=== PATIENT | male | born 1935 | race Caucasian/White ===

== ENCOUNTER 2018-06-23 09:39 | Outpatient (CLI) | payer MEDICARE, BC, OTHER ==
--- NOTE | 2018-06-23 11:27 | ULT ---
COMPLETE ABDOMEN ULTRASOUND: INDICATION: Abdominal pain. COMPARISON: CT of the abdomen and pelvis dated 05/06/2015. FINDINGS: Overlying bowel gas limits evaluation of portions of the left hepatic lobe, proximal aorta. The mid to distal aorta appears within normal limits. The visualized IVC is unremarkable. There are small 4 mm nonmobile focus within the gallbladder. No gallbladder wall thickening or pericholecystic fluid is evident. The common bile duct measures 3.2 mm. Appropriate flow is seen in the main portal vein. No free fluid is evident within the abdomen. The right kidney measures 14.7 x 5.5 x 5.4 cm. The lef t kidney measures 10.0 x 5.1 x 4.8 cm. No focal solid renal lesion or hydronephrosis is evident. Wi thin the inferior pole of the right kidney, there is a large simple cyst measuring 5.3 x 5.3 x 5.6 cm . The spleen is not well demonstrated due to overlying bowel gas. IMPRESSION: 1. Technically limited examination due to overlying bowel gas. 2. Small gallbladder polyp versus tiny adherent gallstone. 3. Right renal cyst. 4. The patient's known left hepatic lobe cyst on a comparison CT from 05/06/2015 from [facility] was not well demonstrated due to the overlying bowel gas. POS: OFF
== END 2018-06-23 09:40 | disposition home or self-care (01) ==
LOC: BICULT 09:39
PROVIDERS: ATTEND Internal Medicine Gastroenterology
DX: K59.09 Other constipation (principal); R10.9 Unspecified abdominal pain; N28.1 Cyst of kidney, acquired; K76.89 Other specified diseases of liver
CPT/HCPCS: 76700

== ENCOUNTER 2019-07-18 08:55 | Outpatient (CLI) | payer MEDICARE, BC ==
--- NOTE | 2019-07-18 10:23 | ULT ---
ULTRASOUND ABDOMEN: HISTORY: Gallbladder polyp. COMPARISON: 06/23/2018. FINDINGS: The left lobe of the liver, pancreas, and the proximal abdominal aorta are not satisfactorily visuali zed due to overlying bowel gas. The spleen is also not seen. The right lobe of the liver is unremar kable. There are 2 nonshadowing immobile echogenic foci arising from the gallbladder wall consistent with po lyps measuring 4 and 7 mm respectively. No shadowing gallstones, gallbladder wall thickening, or per icholecystic fluid is seen. The common duct measures 5 mm in diameter. No free fluid is noted. No hydronephrosis is seen on either side. There are cysts in the right kidney, one of which is a 6.1 cm simple cyst in the inferior pole and a 1.7 cm septated cyst in the superior pole of the right kidney . IMPRESSION: 1. Gallbladder polyps. There are 2 polyps seen on the current exam, while only 1 was noted on the p revious study. 2. Right renal cyst. POS: [id number]
== END 2019-07-18 08:56 | disposition home or self-care (01) ==
LOC: BICULT 08:55
PROVIDERS: ATTEND Internal Medicine Gastroenterology
DX: K82.4 Cholesterolosis of gallbladder (principal); N28.1 Cyst of kidney, acquired
CPT/HCPCS: 76705

== ENCOUNTER 2020-01-14 14:00 | Outpatient (CLI) | payer MEDICARE, BC ==
[~2020-01-14 14:00] MED LIST: Magnevist 469MG/ML 20 ML VIAL ONE
--- NOTE | 2020-01-14 16:18 | MRI ---
MR OF THE PELVIS WITH AND WITHOUT CONTRAST INDICATION: Elevated PSA COMPARISON: None TECHNIQUE: Multiplanar, multisequence MR images were obtained of the pelvis with and without IV contr ast. 20 cc of MultiHance was utilized for the examination. The examination was reviewed on a separate [employer] 3-D workstation for multiplanar metric evaluation. The lack of a bowel prep limits t he diffusion-weighted and ADC values due to rectal gas and rectal stool. FINDINGS: Prostate size: The prostate measured 5.3 x 4.1 x 5.4cm. 57.59 cc. Peripheral zone: There is a 1.9 x 0.9 cm lenticular T2 hypointense, hypointense ADC lesion abutting t he posterior medial and posterior lateral wall of the right prostatic apex and mid gland. This lesion demonstrates abnormal enhancement and is suspicious for clinically significant cancer. No gracia tional lesion is seen within the peripheral zone. Central zone: No suspicious signal abnormality or focal lesion. Neural vasculature: With the size of the lesion in the peripheral zone of the right mid and right pro static apex abutting the capsular wall, right-sided neurovascular invasion is suspected. Regional lymphadenopathy: None Dynamic contrast enhancement: Abnormal within the posterior medial and posterior lateral right prosta tic apex and mid gland Osseous structures: No suspicious osseous lesion is identified. Additional findings: None.. IMPRESSION: 1. PIRADS 5- Very High (clinically significant cancer is highly likely to be present.) 2. 1.9-0.9 cm lenticular, T2 hypointense, ADC hypointense lesion abutting the posterior medial and po sterior lateral wall of the right prostatic apex and mid gland suspicious for clinically significant cancer. With the size of the lesion abutting the capsule of the right prostate gland, rig ht-sided neurovascular invasion is suspected.
== END 2020-01-14 14:01 | disposition home or self-care (01) ==
LOC: TBSIIMAG 14:00
PROVIDERS: ATTEND Urology
DX: R97.20 Elevated prostate specific antigen [PSA] (principal); N42.89 Other specified disorders of prostate
CPT/HCPCS: 72197; A9579

== ENCOUNTER 2020-02-06 09:47 | Outpatient (CLI) | payer MEDICARE, BC ==
--- NOTE | 2020-02-06 13:43 | NM ---
Radionucleotide bone scan HISTORY: Malignant neoplasm of prostate gland. FINDINGS: Heterogeneous mildly increased uptake associated with the thoracolumbar spine, where S shap ed curvature is also present, has a appearance of degenerative changes. Degenerative type uptake also involves the shoulders, elbows, wrists and hands, knees, and feet. No suspicious areas of increased activity are apparent. Sacrum partially obscured by uptake of the bl adder. IMPRESSION : No evidence of osseous metastatic disease.
== END 2020-02-06 09:48 | disposition home or self-care (01) ==
LOC: NM 09:47
PROVIDERS: ATTEND Urology
DX: C61 Malignant neoplasm of prostate (principal)
CPT/HCPCS: 78306; A9503

== ENCOUNTER 2021-09-29 08:17 | Outpatient (CLI) | payer MEDICARE, BC | END 2021-09-29 08:18 | disposition home or self-care (01) | LOC: ULT 08:17 | PROVIDERS: ATTEND Internal Medicine Gastroenterology | DX: R11.0 Nausea (principal); K59.09 Other constipation; K82.4 Cholesterolosis of gallbladder; N28.1 Cyst of kidney, acquired; K76.89 Other specified diseases of liver | CPT/HCPCS: 76700; 78264; A9541 ==

== ENCOUNTER 2021-10-02 08:50 | Outpatient (CLI) | payer MEDICARE, BC, OTHER | END 2021-10-02 08:51 | disposition home or self-care (01) | LOC: NM 08:50 | PROVIDERS: ATTEND Urology | DX: C61 Malignant neoplasm of prostate (principal) | CPT/HCPCS: 78306; A9503 ==

== ENCOUNTER 2021-12-15 12:56 | Outpatient (CLI) | payer MEDICARE, BC | END 2021-12-15 12:57 | disposition home or self-care (01) | LOC: TBSIIMAG 12:56 | PROVIDERS: ATTEND Radiology Radiation Oncology | DX: C61 Malignant neoplasm of prostate (principal); R19.00 Intra-abdominal and pelvic swelling, mass and lump, unspecified site | CPT/HCPCS: 72197; 82565; A9579 ==

== ENCOUNTER 2022-01-07 02:49 | Observation (INO) | payer MEDICARE, BC, OTHER ==
[2022-01-07 05:22] VITALS: BMI 26.6
[2022-01-07 06:16] LABS: #Lymphocytes 0.6 thou/uL (1.20-3.40); #Monocytes 0.9 thou/uL (0.11-0.59); #Neutrophils 6.9 thou/uL (1.40-6.50); %Basophils 0.1 % (0.0-1.0); %Eosinophils 0.5 % (0.0-10.0); %Lymphocytes 7.3 % (21.0-51.0); %Monocytes 10.4 % (0.0-10.0); %Neutrophils 81.8 % (42.0-75.0); Hemoglobin 12.2 g/dL (14.0-18.0); Mean Corpuscular HGB CONC 33.7 g/dL (32.0-36.0); Mean Corpuscular Hemoglobin 32.7 pg (27.0-31.0); Mean Corpuscular Volume 96.9 fl (78.0-98.0); Mean Platelet Volume 7.5 fL (7.4-10.4); Platelet Count 192 10x3/uL (130-400); RBC Distribution Width 12.9 % (11.5-14.5); Red Blood Cell (RBC) Count 3.74 mill/uL (4.70-6.10); White Blood Cell (WBC) Count 8.4 10x3/uL (4.8-10.8)
[2022-01-07 06:26] LABS: Anion Gap 12 mmol/L (10-20); BUN (Urea Nitrogen) 7 mg/dL (8.4-25.7); Calc. Creatinine Clearance 77 mL/min (70-130); Carbon Dioxide 23 mmol/L (23-31); Chloride 99 mmol/L (98-107); Estimated GFR 85; Glucose 123 mg/dL (83-110); Potassium 3.8 mmol/L (3.5-5.1); Sodium 130 mmol/L (136-145)
[2022-01-07] MEDS ORDERED: FLU VACC QS2022-23(65YR UP)/PF 240 MCG/0.7 ML SYRINGE IM ONE (09:00)
[2022-01-07] MEDS ORDERED: Calcium Carbonate 500 MG ChewTAB PO PRN (09:17)
[2022-01-07] MEDS ORDERED: Acetaminophen 325 MG TAB PO PRN (09:17)
[2022-01-07] MEDS ORDERED: cefTRIAXone\\ROCEPHIN 1 GM in Sodium Chloride 0.9% 100 ML IVPB SCH (10:00)
[2022-01-07] MEDS ORDERED: Cefdinir 300 MG CAP PO SCH ×2 (10:15→21:00)
[2022-01-07] MEDS ORDERED: Apixaban 5 MG TAB PO SCH ×2 (10:30→21:00)
[2022-01-07] MEDS ORDERED: Magnesium Sulfate In Water 4 GM in Premix Bag 1 BAG IVPB SCH ×2 (10:30→11:00)
[2022-01-07] MEDS ORDERED: Dronedarone HCl 400 MG TAB PO SCH ×2 (10:30→17:00)
[2022-01-07] MEDS ORDERED: Aspirin 81 mg Enteric Coated Tablet PO SCH (10:30)
[2022-01-07] MEDS ORDERED: Dextrose 50% Abboject 50 ML SYRINGE SLOW IVP PRN (14:41)
[2022-01-07] MEDS ORDERED: Insulin Regular 300 UNITS/3 ML VIAL SC PRN (14:41)
[2022-01-07] MEDS ORDERED: Dextrose 5% in Water 1,000 ML IV PRN (14:41)
[2022-01-07 14:49] VITALS: BP 162/82; TEMP 98.3
[2022-01-08] MEDS ORDERED: Aspirin 81 mg Enteric Coated Tablet PO SCH (09:00)
== END 2022-01-07 15:00 | disposition home or self-care (01) ==
LOC: T4-A 05:05
PROVIDERS: ADMIT Internal Medicine; ATTEND Internal Medicine
DX: E86.0 Dehydration (principal); R19.7 Diarrhea, unspecified; R10.9 Unspecified abdominal pain; E87.1 Hypo-osmolality and hyponatremia; E83.42 Hypomagnesemia; C61 Malignant neoplasm of prostate; E11.9 Type 2 diabetes mellitus without complications; I10 Essential (primary) hypertension; I48.20 Chronic atrial fibrillation, unspecified; N39.0 Urinary tract infection, site not specified; E78.5 Hyperlipidemia, unspecified; I25.10 Atherosclerotic heart disease of native coronary artery without angina pectoris; Z79.01 Long term (current) use of anticoagulants; Z79.2 Long term (current) use of antibiotics; Z79.82 Long term (current) use of aspirin; Z79.84 Long term (current) use of oral hypoglycemic drugs; Z79.899 Other long term (current) drug therapy; Z88.2 Allergy status to sulfonamides; Z88.5 Allergy status to narcotic agent; Z88.8 Allergy status to other drugs, medicaments and biological substances; Z95.5 Presence of coronary angioplasty implant and graft; Z20.822 Contact with and (suspected) exposure to COVID-19
CPT/HCPCS: 80048; 85025; J3475; U0003; U0005; 36415; 96374; G0378

== ENCOUNTER 2022-03-17 11:26 | Outpatient (CLI) | payer MEDICARE, BC, OTHER ==
[~2022-03-17 11:26] MED LIST changes: +Iopamidol 370 76% 100 ML VIAL ONE; -Magnevist 469MG/ML 20 ML VIAL ONE
== END 2022-03-17 11:27 | disposition home or self-care (01) ==
LOC: CT 11:26
PROVIDERS: ATTEND Radiology Radiation Oncology
DX: R59.0 Localized enlarged lymph nodes (principal)
CPT/HCPCS: 70491; 82565; Q9967

== ENCOUNTER 2022-12-22 21:33 | Inpatient (IN) | payer MEDICARE, BC ==
[2022-12-22] MEDS ORDERED: Acetaminophen 650 MG Suppository PR PRN (22:19)
[2022-12-22] MEDS ORDERED: Acetaminophen 325 MG TAB PO PRN (22:19)
[2022-12-22] MEDS ORDERED: HumaLOG 300 UNITS/3 ML VIAL SC PRN ×2 (23:20)
[2022-12-22] MEDS ORDERED: Dextrose 5% in Water 1,000 ML IV PRN (23:20)
[2022-12-22] MEDS ORDERED: Glucagon 1 MG/ML KIT IM PRN (23:20)
[2022-12-22] MEDS ORDERED: Dextrose 50% Abboject 50 ML SYRINGE SLOW IVP PRN (23:20)
[2022-12-22 23:28] VITALS: BMI 25.7
[2022-12-22] MEDS ORDERED: Apixaban 5 MG TAB PO SCH (23:45)
[2022-12-22] MEDS ORDERED: hydrALAZINE 25 MG TAB PO SCH (23:45)
[2022-12-23 05:36] LABS: #Basophils 0.1 thou/uL (0.0-0.2); #Eosinphils 0.2 thou/uL (0.0-0.7); #Monocytes 0.7 thou/uL (0.11-0.59); #Neutrophils 3.9 thou/uL (1.40-6.50); %Basophils 0.8 % (0.0-1.0); %Eosinophils 3.4 % (0.0-10.0); %Lymphocytes 19.9 % (21.0-51.0); %Monocytes 11.9 % (0.0-10.0); %Neutrophils 63.5 % (42.0-75.0); Hemoglobin 13.3 g/dL (14.0-18.0); Mean Corpuscular HGB CONC 34.1 g/dL (32.0-36.0); Mean Platelet Volume 9.7 fL (7.4-10.4); Platelet Count 202 10x3/uL (130-400); RBC Distribution Width 13.8 % (11.5-14.5); Red Blood Cell (RBC) Count 4.15 mill/uL (4.70-6.10); White Blood Cell (WBC) Count 6.1 10x3/uL (4.8-10.8)
[2022-12-23 06:00] LABS: Anion Gap 11 mmol/L (10-20); BUN (Urea Nitrogen) 14 mg/dL (8.4-25.7); Calc. Creatinine Clearance 75 mL/min (70-130); Calcium 9.4 mg/dL (7.8-10.44); Carbon Dioxide 25 mmol/L (23-31); Chloride 105 mmol/L (98-107); Estimated GFR 85; Glucose 104 mg/dL (83-110); Potassium 3.6 mmol/L (3.5-5.1); Sodium 137 mmol/L (136-145)
[2022-12-23] MEDS ORDERED: Amlodipine 5 MG TAB PO SCH (09:00)
[2022-12-23] MEDS: Famotidine 20 MG TAB PO SCH ×2 (10:32→20:11)
[2022-12-23] MEDS: Apixaban 5 MG TAB PO SCH ×2 (10:32→20:11)
[2022-12-23] MEDS: Aspirin 81 mg Enteric Coated Tablet PO SCH (10:32)
[2022-12-23] MEDS: Tamsulosin HCl 0.4 MG CAP PO SCH (10:33)
[2022-12-23] MEDS: metFORMIN 500 MG TAB PO SCH ×2 (10:33→20:11)
[2022-12-23] MEDS: Metoprolol Tartrate 25 MG TAB PO SCH (10:33)
[2022-12-23] MEDS: Isosorbide Mononitrate 30 MG ER.TAB PO SCH (10:33)
[2022-12-23] MEDS: Lisinopril 20 MG TAB PO SCH (10:33)
[2022-12-23] MEDS: Simvastatin 10 MG TAB PO SCH (20:11)
[2022-12-24] MEDS: Tamsulosin HCl 0.4 MG CAP PO SCH (09:48)
[2022-12-24] MEDS: Amlodipine 10 MG TAB PO SCH (09:48)
[2022-12-24] MEDS: Aspirin 81 mg Enteric Coated Tablet PO SCH (09:48)
[2022-12-24] MEDS: Famotidine 20 MG TAB PO SCH ×2 (09:49→19:58)
[2022-12-24] MEDS: Metoprolol Tartrate 25 MG TAB PO SCH (09:49)
[2022-12-24] MEDS: metFORMIN 500 MG TAB PO SCH ×2 (09:50→19:59)
[2022-12-24] MEDS: Lisinopril 20 MG TAB PO SCH (09:50)
[2022-12-24] MEDS: Apixaban 5 MG TAB PO SCH ×2 (09:50→19:59)
[2022-12-24] MEDS: Isosorbide Mononitrate 30 MG ER.TAB PO SCH (11:31)
[2022-12-24] MEDS ORDERED: hydrALAZINE 25 MG TAB PO PRN (16:32)
[2022-12-24] MEDS: Simvastatin 10 MG TAB PO SCH (19:59)
[2022-12-25 07:47] VITALS: BP 130/83; TEMP 97.9
[2022-12-25] MEDS: Lisinopril 20 MG TAB PO SCH (09:24)
[2022-12-25] MEDS: Amlodipine 10 MG TAB PO SCH (09:25)
[2022-12-25] MEDS: metFORMIN 500 MG TAB PO SCH (09:25)
[2022-12-25] MEDS: Tamsulosin HCl 0.4 MG CAP PO SCH (09:26)
[2022-12-25] MEDS: Apixaban 5 MG TAB PO SCH (09:26)
[2022-12-25] MEDS: Metoprolol Tartrate 25 MG TAB PO SCH (09:26)
[2022-12-25] MEDS: Aspirin 81 mg Enteric Coated Tablet PO SCH (09:26)
[2022-12-25] MEDS: Isosorbide Mononitrate 30 MG ER.TAB PO SCH (09:27)
[2022-12-25] MEDS: Famotidine 20 MG TAB PO SCH (09:27)
[2022-12-26] MEDS ORDERED: FLU VACC QS2023(65UP)/MF59C/PF 60 MCG/0.5 ML SYRINGE IM ONE (09:00)
== END 2022-12-25 13:00 | disposition home or self-care (01) | DRG 69 ==
LOC: 2SE 22:04 → OBSVTOIN 12-24 13:10
PROVIDERS: ADMIT Internal Medicine; ATTEND Internal Medicine
PROC: 4A00X4Z Measurement of Central Nervous Electrical Activity, External Approach (ICD-10-PCS; principal; 2022-12-24)
DX: G45.9 Transient cerebral ischemic attack, unspecified (principal); R47.01 Aphasia; I48.20 Chronic atrial fibrillation, unspecified; I16.0 Hypertensive urgency; E11.9 Type 2 diabetes mellitus without complications; I10 Essential (primary) hypertension; E78.5 Hyperlipidemia, unspecified; I25.10 Atherosclerotic heart disease of native coronary artery without angina pectoris; Z95.5 Presence of coronary angioplasty implant and graft; Z82.49 Family history of ischemic heart disease and other diseases of the circulatory system; Z79.01 Long term (current) use of anticoagulants; Z79.899 Other long term (current) drug therapy; Z88.5 Allergy status to narcotic agent; Z88.8 Allergy status to other drugs, medicaments and biological substances; N40.0 Benign prostatic hyperplasia without lower urinary tract symptoms; Z79.82 Long term (current) use of aspirin
CPT/HCPCS: 36415; 36416; 70551; 80048; 85025; 95816; 95819; G0378; J1815